=== PATIENT | male | born 1965 | race Caucasian/White ===

== ENCOUNTER 2016-09-11 15:05 | Emergency (ER) | payer OTHER ==
[2016-09-11 16:33] LABS: BASOPHIL 0.1 % (0-2); EOSINOPHIL 1.9 % (0-5); HCT 39.4 % (42.0-52.0); HGB 14.1 g/dl (13.2-18.0); LYMPHOCYTE 13.7 % (15-48); MCH 31.5 pg (25.0-31.0); MCHC 35.8 g/dL (32.0-36.0); MCV 87.9 fL (78.0-100.0); MPV 10.7 fL (6.0-9.5); NEUTROPHIL 75.3 % (41-80); PLT 202 K/uL (150-400); RBC 4.48 M/uL (4.70-6.00); RDW 13.3 % (11.5-14.0); WBC 6.8 K/uL (4.0-10.5)
[2016-09-11 16:34] LABS: BILIRUBIN NEGATIVE (NEGATIVE); BLOOD NEGATIVE Ery/uL (NEGATIVE); CLARITY CLEAR (CLEAR); COLOR YELLOW (YELLOW); GLUCOSE (U) NORMAL (NORMAL); KETONE (U) TRACE mg/dL (NEGATIVE); LEUKOCYTES NEGATIVE Leu/uL (NEGATIVE); NITRITE NEGATIVE (NEGATIVE); PROTEIN NEGATIVE (NEGATIVE); UROBILINOGEN 0.2 mg/dL (0.2-1.0); pH 6.5 (5.0-9.0)
[2016-09-11 16:51] LABS: ALBUMIN 4.4 g/dL (3.5-5.0); BILIRUBIN - TOTAL 0.6 mg/dL (0.1-1.0); CREATININE 1.3 mg/dL (0.7-1.2); GLOBULIN (CALCULATION) 3.1 g/dL (2.2-4.2); POTASSIUM 3.5 mmol/L (3.5-5.1); TOTAL PROTEIN 7.5 g/dL (6.4-8.3)
== END 2016-09-11 18:21 | disposition home or self-care (01) ==
LOC: FER 15:05
PROVIDERS: Emergency Medicine
DX: E86.0 Dehydration (principal); R10.84 Generalized abdominal pain; R00.1 Bradycardia, unspecified; I10 Essential (primary) hypertension; Z88.8 Allergy status to other drugs, medicaments and biological substances; Z79.899 Other long term (current) drug therapy
CPT/HCPCS: 36415; 80053; 81003; 82550; 85025; 93005